=== PATIENT | male | born 1975 | race Caucasian/White ===

== ENCOUNTER 2018-05-22 03:01 | Emergency (ER) | payer OTHER ==
[~2018-05-22] VITALS: Ht 172.7 cm; Wt 79.0 kg
[2018-05-22 03:06] VITALS: BP 154/97
[2018-05-22 03:52] LABS: URINE AMPHETAMINE SCREEN POSITIVE (Neg); URINE BARBITUATE SCREEN NEGATIVE (Neg); URINE BENZODIAZEPINES SCREEN POSITIVE (Neg); URINE CANNABINOID SCREEN POSITIVE (Neg); URINE COCAINE SCREEN NEGATIVE (Neg); URINE METHADONE SCREEN NEGATIVE (Neg); URINE OPIATE SCREEN POSITIVE (Neg); URINE PHENCYCLIDINE SCREEN NEGATIVE (Neg)
[2018-05-22] MEDS ORDERED: chlordiazePOXIDE 25mg capsule PO ONE (04:20)
== END 2018-05-22 04:31 | disposition home or self-care (01) ==
LOC: ER 03:02
DX: F19.10 Other psychoactive substance abuse, uncomplicated (principal); R00.0 Tachycardia, unspecified; F12.90 Cannabis use, unspecified, uncomplicated; F15.90 Other stimulant use, unspecified, uncomplicated; Z88.6 Allergy status to analgesic agent
CPT/HCPCS: 80305; 99283

== ENCOUNTER 2019-02-11 00:39 | Inpatient (IN) | payer MEDICAID, OTHER ==
[~2019-02-11] VITALS: Ht 172.7 cm; Wt 79.6 kg
[2019-02-11 02:00] LABS: CLARITY,URINE CLEAR (Clear); COLOR,URINE YELLOW (Yellow); GLUCOSE, URINE NEGATIVE (Neg); KETONES,URINE NEGATIVE (Neg); LEUKOCYTE ESTERASE ,URINE NEGATIVE (Neg); NITRITES, URINE NEGATIVE (Neg); OCCULT BLOOD,URINE TRACE-LYSED (Neg); PROTEIN,URINE NEGATIVE (Neg); UA COLLECTION TYPE CLN CATCH MIDSTREAM; UROBILINOGEN,URINE 0.2 E.U/dL (0.2-1.0)
[2019-02-11 02:22] LABS: BACTERIA,URINE NONE SEEN /HPF (Neg); MUCUS STRANDS NONE SEEN /LPF (Neg); RBC,URINE 0-2 /HPF (0-2); SQUAMOUS EPITHELIAL CELL,UR NONE SEEN /LPF (FEW); WBC,URINE 0-4 /HPF (0-4)
[2019-02-11 02:36] LABS: PARTIAL THROMBOPLASTIN TIME 29 SECONDS (22-32)
[2019-02-11 02:41] LABS: ALANINE AMINOTRANSFERASE 18 U/L (12-78); ALBUMIN 4.1 G/DL (3.4-5.0); ALBUMIN/GLOBULIN RATIO 0.9 (1.1-1.5); ALKALINE PHOSPHATASE 114 IU/L (46-116); ANION GAP 6 (8-16); ASPARTATE AMINO TRANSFERASE 18 U/L (10-37); BILIRUBIN,TOTAL 0.3 MG/DL (0.1-1.0); BLOOD UREA NITROGEN 17 MG/DL (7-18); BUN/CREATININE RATIO 15.3 (5.4-32.0); C-REACTIVE PROTEIN 1.41 MG/DL (0.0-0.5); CHLORIDE 99 MMOL/L (99-107); CREATININE 1.11 MG/DL (0.60-1.10); GLUCOSE 100 MG/DL (70-104); POTASSIUM 3.9 MMOL/L (3.5-5.1); SODIUM 135 MMOL/L (135-145); TOTAL CARBON DIOXIDE 29.6 MMOL/L (24-32); TOTAL PROTEIN 8.5 G/DL (6.4-8.2); eGFR 73 ML/MIN
[2019-02-11 02:43] LABS: BASOPHILS # (AUTO) 0.1 X10'3 (0-0.2); BASOPHILS % (AUTO) 0.7 % (0-1); EOSINOPHILS # (AUTO) 0.3 X10'3 (0-0.9); EOSINOPHILS % (AUTO) 3.2 % (0-6); HEMATOCRIT 43.8 % (42.0-52.0); HEMOGLOBIN 15.2 g/dl (14.0-17.9); LYMPHOCYTES # (AUTO) 2.4 X10'3 (1.1-4.8); LYMPHOCYTES % (AUTO) 26.3 % (21-51); MEAN CORPUSCULAR HEMOGLOBIN 31.3 PG (27.0-31.0); MEAN CORPUSCULAR HGB CONC 34.7 g/dL (33.0-36.5); MEAN CORPUSCULAR VOLUME 90.3 FL (78-98); MEAN PLATELET VOLUME 7.6 FL (7.4-10.4); MONOCYTES # (AUTO) 0.5 X10'3 (0-0.9); MONOCYTES % (AUTO) 5.9 % (2-12); NEUTROPHILS # (AUTO) 5.8 X10'3 (1.8-7.7); NEUTROPHILS % (AUTO) 63.9 % (42-75); PLATELET COUNT 293 X10'3 (140-440); RED BLOOD COUNT 4.85 X10'6 (4.70-6.10)
[2019-02-11] MEDS ORDERED: vancomycin/NS 1 GM ADD-VANTAGE 250 ML IV ONE (02:55)
[2019-02-11] MEDS ORDERED: piperacillin/tazo 3.375gm/50ml 50 ML IV ONE (02:55)
[2019-02-11] MEDS ORDERED: NO HOME MEDS (03:05)
[2019-02-11 03:19] LABS: URINE AMPHETAMINE SCREEN POSITIVE (Neg); URINE BARBITUATE SCREEN NEGATIVE (Neg); URINE BENZODIAZEPINES SCREEN NEGATIVE (Neg); URINE CANNABINOID SCREEN POSITIVE (Neg); URINE COCAINE SCREEN NEGATIVE (Neg); URINE METHADONE SCREEN NEGATIVE (Neg); URINE OPIATE SCREEN NEGATIVE (Neg); URINE PHENCYCLIDINE SCREEN NEGATIVE (Neg)
[2019-02-11] MEDS ORDERED: magnesium hydroxide 30ml (MOM) UD suspension PO PRN (04:15)
[2019-02-11] MEDS ORDERED: acetaminophen 325mg tablet PO PRN (04:15)
[2019-02-11] MEDS ORDERED: ondansetron/PF 4mg/2ml inj IV PRN (04:15)
[2019-02-11] MEDS ORDERED: HYDROcodone/acetaminophen 5mg/325mg tablet PO PRN (04:15)
[2019-02-11] MEDS ORDERED: mag hydrox/Alum hydrox/simeth 30ml oral suspension PO PRN (04:15)
[2019-02-11] MEDS ORDERED: morphine 2 MG/ML inj. syringe IV PRN (04:15)
[2019-02-11 05:05] VITALS: BP 120/99
--- NOTE | 2019-02-11 07:03 | NUR ---
Patient in room [facility]TH[facility] 4014. I have received report from Nellie KHAN and had the opportunity to ask questions and assume patient care.
[2019-02-11] MEDS: normal saline 1000ml 1,000 ML IV SCH ×3 (07:05→19:57)
[2019-02-11] MEDS: lactobacillus rhamnosus 10,000 MMU CELLS/CAPSULE PO SCH ×2 (09:21→19:48)
[2019-02-11] MEDS: heparin, porcine 5000 units/ml vial SQ SCH ×2 (09:22→20:00)
[2019-02-11] MEDS: piperacillin/tazo 3.375gm/50ml 50 ML IV SCH ×2 (10:52→19:49)
[2019-02-11] MEDS: vancomycin/NS 1 GM ADD-VANTAGE 250 ML IV SCH (15:32)
[2019-02-11 18:00] VITALS: BP 122/78
--- NOTE | 2019-02-11 18:25 | NUR ---
Problems reprioritized. Patient report given, questions answered & plan of care reviewed with Leidy KHAN.
[2019-02-11 22:00] VITALS: BP 115/71
[2019-02-12] MEDS: vancomycin/NS 1 GM ADD-VANTAGE 250 ML IV SCH ×2 (02:39→15:00)
[2019-02-12] MEDS: piperacillin/tazo 3.375gm/50ml 50 ML IV SCH ×2 (03:50→10:49)
[2019-02-12 06:00] VITALS: BP 107/66
--- NOTE | 2019-02-12 06:20 | NUR ---
Patient in room [facility]TH[facility] 4014. I have received report from ERIN Forbes and had the opportunity to ask questions and assume patient care.
[2019-02-12] MEDS: heparin, porcine 5000 units/ml vial SQ SCH (08:00)
[2019-02-12] MEDS: lactobacillus rhamnosus 10,000 MMU CELLS/CAPSULE PO SCH (08:16)
[2019-02-12 08:55] LABS: BASOPHILS # (AUTO) 0.1 X10'3 (0-0.2); BASOPHILS % (AUTO) 0.8 % (0-1); EOSINOPHILS # (AUTO) 0.4 X10'3 (0-0.9); EOSINOPHILS % (AUTO) 4.6 % (0-6); HEMATOCRIT 43.4 % (42.0-52.0); HEMOGLOBIN 14.9 g/dl (14.0-17.9); LYMPHOCYTES # (AUTO) 1.8 X10'3 (1.1-4.8); LYMPHOCYTES % (AUTO) 21.1 % (21-51); MEAN CORPUSCULAR HEMOGLOBIN 30.7 PG (27.0-31.0); MEAN CORPUSCULAR HGB CONC 34.4 g/dL (33.0-36.5); MEAN CORPUSCULAR VOLUME 89.2 FL (78-98); MEAN PLATELET VOLUME 7.3 FL (7.4-10.4); MONOCYTES # (AUTO) 0.5 X10'3 (0-0.9); MONOCYTES % (AUTO) 5.4 % (2-12); NEUTROPHILS # (AUTO) 5.7 X10'3 (1.8-7.7); NEUTROPHILS % (AUTO) 68.1 % (42-75); PLATELET COUNT 302 X10'3 (140-440); RED BLOOD COUNT 4.86 X10'6 (4.70-6.10); WHITE BLOOD COUNT 8.4 X10'3 (4.5-11.0)
[2019-02-12 09:14] LABS: ALBUMIN 3.3 G/DL (3.4-5.0); ANION GAP 7 (8-16); BLOOD UREA NITROGEN 12 MG/DL (7-18); BUN/CREATININE RATIO 10.4 (5.4-32.0); CALCIUM 8.4 MG/DL (8.5-10.1); CHLORIDE 103 MMOL/L (99-107); CREATININE 1.15 MG/DL (0.60-1.10); GLUCOSE 106 MG/DL (70-104); POTASSIUM 4.3 MMOL/L (3.5-5.1); SODIUM 137 MMOL/L (135-145); TOTAL CARBON DIOXIDE 27.1 MMOL/L (24-32); eGFR 70 ML/MIN
[2019-02-12 10:00] VITALS: BP 104/53
[2019-02-12] MEDS ORDERED: pneumococcal 23-VAL P-sac vacc 25 mcg/0.5ml vial IMVAC ONE (10:00)
[2019-02-12] MEDS ORDERED: FLU VACC QS 2019-20 (6 MOS UP) 60 MCG/0.5 ML VIAL IMVAC ONE (10:00)
[2019-02-12] MEDS: normal saline 1000ml 1,000 ML IV SCH (10:12)
[2019-02-12] MEDS ORDERED: VANCOMYCIN LEVEL IV ONE (14:30)
--- NOTE | 2019-02-12 14:30 | NUR ---
PAGER ID: [phone] MESSAGE: Dr. Mcrae, Pt in [id number] [facility] is wanting to know what the plan for his care is. He is under the impression that he is to be d/c today. Please advise. [id number]
[2019-02-12] MEDS ORDERED: AMOX-422 PO (14:48)
--- NOTE | 2019-02-12 16:00 | NUR ---
Patient discharged, all instructions given to patient and gone over all questions answered. New prescriptions called into patient pharmacy. All patient belongings gathered and taken with him. PIV discontinued and was intact. Patient ambulated down to the lobby where he will await his ride. Patient alert and oriented and in stable condition.
== END 2019-02-12 16:15 | disposition home or self-care (01) | DRG 603 ==
LOC: ER 00:40 → ED HOLD 04:32 → ORTHO 4S 05:10
PROVIDERS: ADMIT Family Medicine; ATTEND Family Medicine
DX: L03.011 Cellulitis of right finger (principal); F12.90 Cannabis use, unspecified, uncomplicated; F15.10 Other stimulant abuse, uncomplicated; F17.210 Nicotine dependence, cigarettes, uncomplicated; N18.9 Chronic kidney disease, unspecified; Z28.21 Immunization not carried out because of patient refusal; Z88.5 Allergy status to narcotic agent; Z71.51 Drug abuse counseling and surveillance of drug abuser
CPT/HCPCS: 36415; 71045; 73130; 80048; 80053; 80305; 81001; 83605; 84145; 85025; 85610; 85651; 85730; 86140; 87040; 87081; 96365; 99285; G0378; J1644; J2543; J3370; J7030

== ENCOUNTER 2019-12-11 17:13 | Emergency (ER) | payer MEDICAID ==
[~2019-12-11] VITALS: Ht 172.7 cm; Wt 81.8 kg
[2019-12-11 17:42] VITALS: BP 107/83
[2019-12-11] MEDS ORDERED: PENI500T2 PO (19:07)
== END 2019-12-11 19:25 | disposition home or self-care (01) ==
LOC: ER 17:13
DX: K04.7 Periapical abscess without sinus (principal); K02.9 Dental caries, unspecified; F12.90 Cannabis use, unspecified, uncomplicated; F15.90 Other stimulant use, unspecified, uncomplicated; Z88.5 Allergy status to narcotic agent; Z79.2 Long term (current) use of antibiotics
CPT/HCPCS: 99283

== ENCOUNTER 2021-02-10 12:12 | Emergency (ER) | payer MEDICAID ==
[~2021-02-10] VITALS: Ht 172.7 cm; Wt 84.1 kg
[2021-02-10 13:22] VITALS: BP 125/79
== END 2021-02-10 20:07 | disposition left against medical advice (07) ==
LOC: ER 12:12
DX: Z53.21 Procedure and treatment not carried out due to patient leaving prior to being seen by health care provider (principal)

== ENCOUNTER 2021-07-09 10:51 | Emergency (ER) | payer MEDICAID ==
[~2021-07-09] VITALS: Ht 172.7 cm; Wt 81.0 kg
[2021-07-09 10:58] VITALS: BP 119/74
[2021-07-09] MEDS ORDERED: acetaminophen 325mg tablet PO ONE (13:15)
[2021-07-09] MEDS ORDERED: cephalexin 500mg capsule PO ONE (13:30)
[2021-07-09 13:40] LABS: BASOPHILS % (AUTO) 0.8 % (0-1); EOSINOPHILS # (AUTO) 0.2 X10'3 (0-0.9); EOSINOPHILS % (AUTO) 4.4 % (0-6); HEMATOCRIT 41.9 % (42.0-52.0); HEMOGLOBIN 13.9 g/dl (14.0-17.9); LYMPHOCYTES # (AUTO) 1.1 X10'3 (1.1-4.8); LYMPHOCYTES % (AUTO) 23.2 % (21-51); MEAN CORPUSCULAR HGB CONC 33.3 g/dL (33.0-36.5); MEAN CORPUSCULAR VOLUME 87.1 FL (78-98); MEAN PLATELET VOLUME 8.1 FL (7.4-10.4); MONOCYTES # (AUTO) 0.3 X10'3 (0-0.9); MONOCYTES % (AUTO) 5.9 % (2-12); NEUTROPHILS # (AUTO) 3.2 X10'3 (1.8-7.7); NEUTROPHILS % (AUTO) 65.7 % (42-75); PLATELET COUNT 321 X10'3 (140-440); RED BLOOD COUNT 4.81 X10'6 (4.70-6.10); RED CELL DISTRIBUTION WIDTH 14.3 % (11.5-14.5); WHITE BLOOD COUNT 4.9 X10'3 (4.5-11.0)
[2021-07-09 13:55] LABS: ALANINE AMINOTRANSFERASE 38 U/L (12-78); ALBUMIN 3.9 G/DL (3.4-5.0); ALKALINE PHOSPHATASE 91 IU/L (46-116); ANION GAP 12 (8-16); ASPARTATE AMINO TRANSFERASE 29 U/L (10-37); BLOOD UREA NITROGEN 17 MG/DL (7-18); BUN/CREATININE RATIO 17.5 (5.4-32.0); CALCIUM 8.5 MG/DL (8.5-10.1); CHLORIDE 104 MMOL/L (99-107); CREATININE 0.97 MG/DL (0.60-1.10); GLUCOSE 99 MG/DL (70-104); POTASSIUM 3.2 MMOL/L (3.5-5.1); SODIUM 141 MMOL/L (135-145); TOTAL CARBON DIOXIDE 25.2 MMOL/L (24-32); TOTAL PROTEIN 7.9 G/DL (6.4-8.2); eGFR 84 ML/MIN
[2021-07-09] MEDS ORDERED: SULF1TAB49 PO (14:19)
[2021-07-09] MEDS ORDERED: RIFA300C9 PO (14:19)
== END 2021-07-09 14:36 | disposition home or self-care (01) ==
LOC: ER 10:51
DX: L02.512 Cutaneous abscess of left hand (principal); F12.90 Cannabis use, unspecified, uncomplicated; F15.90 Other stimulant use, unspecified, uncomplicated; Z88.8 Allergy status to other drugs, medicaments and biological substances; Z79.899 Other long term (current) drug therapy
CPT/HCPCS: 10060; 36415; 80053; 85025; 99283

== ENCOUNTER 2024-08-05 09:42 | Emergency (ER) | payer MEDICAID ==
[~2024-08-05] VITALS: Ht 170.2 cm; Wt 81.3 kg
[2024-08-05] MEDS: triamcinolone acetonide 40mg/ml inj IM ONE (12:30)
[2024-08-05] MEDS: hydrOXYzine 25 MG tablet PO ONE (12:30)
[2024-08-05] MEDS ORDERED: HYDR-3686 PO (12:36)
--- NOTE | 2024-08-05 12:39 | Physician Documentation ---
History of Present Illness General Chief Complaint: Rash Stated Complaint: POISON OAK Time Seen by MD: 11:23 Primary Medical Doctor: NONE History of Present Illness Initial Comments 48 mL presents to the emergency department with facial swelling and rash. 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 He has no prior history of same. No seasonal allergies reported. No shortness a breath for past medical history of reactive airway disease. Medication Reconciliation Allergies: Coded Allergies: tramadol (Verified Allergy, Intermediate, SEIZURE, 08/05/24) Past Medical History Past Medical History: *GI/HEPATOBILIARY* Past Surgical History: noncontributory Alcohol Use: None Drug Use: marijuana, methamphetamine Lives In: Home Review of Systems All Other Systems at this time: Reviewed and Negative Constitutional: Denies: fever, chills RESP: Denies: short of breath, cough CV: Denies: chest pain Physical Exam Physical Exam Vital Signs: RN Vital Signs have been reviewed: Yes, Temperature: 98.1, Source: Temporal, Heart Rate: 51, Respiratory Rate: 18, BP: 107/70, Pulse Oximetry: 96, Weight: 81.300 Oxygen Flow Rate: 0 General Appearance: alert, WD/WN, mild distress Head: normal inspection Face: other (. We will swelling and flushing in his) Pupils/EOM/Fundus: PERRLA Oropharynx: normal inspection Respiratory: lungs clear Chest: no accessory muscle use Cardiovascular: normal peripheral pulses Gastrointestinal: normal palpation Back: normal inspection Neurologic: oriented x4 Motor / Sensory: no motor deficit, no sensory deficit Psychiatric: normal mood/affect Skin: other (Scattered due to [place]) Progress Results/Orders Results/Orders Completed Orders - MARLON PRESTON Triamcinolone Acet 40mg/Ml Inj (Kenalog- (08/05/24 12:20) Hydroxyzine Tablet (Atarax Tablet) (08/05/24 12:25) Medications Received in ER Medications (Trade) Dose Ordered Sig/Pooja Route PRN Reason Start Time Stop Time Status Last Admin Dose Admin (Kenalog-40 inj) 60 mg ONCE ONCE IM 08/05/24 12:20 08/05/24 12:22 DC 08/05/24 12:30 60 MG (Atarax tablet) 25 mg ONCE ONCE PO 08/05/24 12:25 08/05/24 12:26 DC 08/05/24 12:30 25 MG Vital Signs 08/05/24 08/05/24 09:55 12:14 Temp 98.1 98.1 Pulse 57 51 Resp 16 18 B/P (MAP) 119/58 107/70 (82) Pulse Ox 100 96 O2 Flow Rate 0 Medical Decision Making Differential Diagnosis Examination history consistent with the acute hypersensitivity one type reaction requiring Kenalog injection and hydroxyzine. Patient be discharged with H1 and H2 blockers. Recommendations are to continue with the nonsedating antihistamine after acute flare has resolved. Patient is safely discharged to the emergency department with a suspicion for angioedema and anaphylaxis. Departure Disposition: HOME / SELF CARE / HOMELESS Impression: Primary Impression: Hypersensitivity reaction Qualified Codes: T78.40XA - Allergy, unspecified, initial encounter Condition: Improved Discharge Instructions: Allergies, Adult, [id number] Additional Instructions: Your examination & history consistent with a type 1 hypersensitivity reaction requiring Kenalog and hydroxyzine. Patient tolerated injection and medication while in the emergency department will be discharged accordingly with prescription hand. They believe he is in the emergency department [facility] and return if symptoms worsen. Referrals: NO PRIMARY CARE PROVIDER (PCP) Prescriptions Hydroxyzine Hcl* (Atarax*) 25 Mg Tablet 1 TAB PO Q8H PRN for ITCHING for 10 Days, #30 TAB Prov: MARLON PRESTON 08/05/24 Education Educated: Patient Educated regarding: diagnosis, treatment Signature Scribe Signature: . Attestation: . MARLON PRESTON Aug 05, 2024 12:39
[2024-08-05 12:51] VITALS: BP 107/70; PULSE 60; RESP 18; TEMP 98.1; O2SAT 99
== END 2024-08-05 13:01 | disposition home or self-care (01) ==
LOC: ER 09:42
DX: T78.40XA Allergy, unspecified, initial encounter (principal); Z88.5 Allergy status to narcotic agent; Y92.89 Other specified places as the place of occurrence of the external cause
CPT/HCPCS: 96372; 99283; J3301; Q0177

== ENCOUNTER 2024-10-31 14:55 | Emergency (ER) | payer MEDICAID ==
[~2024-10-31] VITALS: Ht 172.7 cm; Wt 80.3 kg
[2024-10-31 14:58] VITALS: BP 145/93; PULSE 77; RESP 14; TEMP 97.7; O2SAT 99
--- NOTE | 2024-10-31 15:43 | Physician Documentation ---
History of Present Illness ~ Chief Complaint: Jaw Pain Stated Complaint: JAW PAIN Time Seen by MD: 15:29 Primary Medical Doctor: NONE HPI Patient is a 48-year-old male that presents to the emergency department for evaluation of left-sided jaw pain times multiple weeks. Patient reports that he had all of his teeth extracted approximately 10 weeks ago in preparation for dentures. Reports that he feels that piece of bone sticking out from the gumline and is concerned that it is a piece of his jaw. Patient denies inability to open his mouth close his mouth does not have any significant pain only feels piece of bone protruding from the gumline. No other complaints reported today. Tetanus Within 5 Years: No (unknown) Medication Reconciliation Allergies: Coded Allergies: tramadol (Verified Allergy, Intermediate, SEIZURE, 08/05/24) Past Medical History Past Medical History: *GI/HEPATOBILIARY* Past Surgical History: noncontributory Alcohol Use: None Drug Use: marijuana, methamphetamine Lives In: Home Review of Systems ROS As stated above in the HPI, otherwise all systems are reviewed and negative. Physical Exam Vital Signs: Temperature: 97.7, Source: Temporal, Heart Rate: 77, Respiratory Rate: 14, BP: 145/93, Pulse Oximetry: 99, Weight: 80.300 Oxygen Flow Rate: 0 Physical Exam VITALS: Reviewed and as above. GENERAL: Alert, no apparent distress. HEENT: Normocephalic, atraumatic, PERRL, EOMI, dry mucosa, no erythema RESPIRATORY: Lungs clear, normal breath sounds, no respiratory distress. CHEST: No accessory muscle use, no retractions CV: Regular rate, rhythm, no edema, no murmur, No: JVD GI: Soft, non-tender, bowels sounds present, no rebound, guarding, or rigidity BACK: No CVA tenderness, or swelling MUSCULOSKELETAL No deformities, no edema, no pain with examination of jaw including biting down onto a tongue depressor and twisting. SKIN: Warm and dry, no rash NEURO: Oriented x4, No motor or sensory deficit PSYCH: Normal mood and affect, no agitation Progress Results/Orders Results/Orders Vital Signs 10/31/24 14:58 Temp 97.7 Pulse 77 Resp 14 B/P (MAP) 145/93 Pulse Ox 99 O2 Flow Rate 0 Medical Decision Making Findings Patient presents for dental pain due to suspected retained piece of tooth from extraction 10 weeks ago. Patient not immunosuppressed, afebrile and well appearing with patent airway, have low suspicfion for deep space infection or any concern for airway compromise. Based on history, physical, and work up. No evidence of tooth fracture, avulsion, or bleeding socket. Instructed patient to continue to treat pain with ibuprofen/acetaminophen until they see a dentist. Defer ABX for dental pain alone with no overt evidence of infection. Patient discharged home and will follow up with dentist November 12 per patient. Discussed return precautions for odontogenic infections and other dental pain emergencies. Patient will return to the emergency department with any worsening of his current symptoms or any additional concerning symptoms that we discussed here today i.e. fever chills nausea vomiting increased pain swelling of his neck difficulty swallowing difficulty breathing or any other concerning symptoms. Differential Dx:Considerations: Include: Abrasion, Contusion, Cerebral contusion, Cervical spine injury, Closed head injury, Encephalopathy, Foreign body, Fracture, facial, Intoxication-alcohol, Intoxication-other drug, Laceration, Other Departure Disposition: HOME / SELF CARE / HOMELESS Impression: Primary Impression: Jaw pain Additional Impression: Retained root of tooth after tooth extraction Discharge Instructions: Dental Pain, [id number] Additional Instructions: Patient presents for dental pain due to suspected retained piece of tooth from extraction 10 weeks ago. Patient not immunosuppressed, afebrile and well appearing with patent airway, have low suspicfion for deep space infection or any concern for airway compromise. Based on history, physical, and work up. No evidence of tooth fracture, avulsion, or bleeding socket. Instructed patient to continue to treat pain with ibuprofen/acetaminophen until they see a dentist. Defer ABX for dental pain alone with no overt evidence of infection. Patient discharged home and will follow up with dentist November 12 per patient. Discussed return precautions for odontogenic infections and other dental pain emergencies. Patient will return to the emergency department with any worsening of his current symptoms or any additional concerning symptoms that we discussed here today i.e. fever chills nausea vomiting increased pain swelling of his neck difficulty swallowing difficulty breathing or any other concerning symptoms. Referrals: NO PRIMARY CARE PROVIDER (PCP) Education Educated: Patient Educated regarding: diagnosis, treatment, need for follow up Signature Scribe Signature: A Attestation: Scribed for Sergio Saini by YOBANY Barillas . 10/31/24 15:44 SERGIO SAINI Oct 31, 2024 15:42
== END 2024-10-31 15:58 | disposition home or self-care (01) ==
LOC: ER 14:56
DX: K08.3 Retained dental root (principal); R68.84 Jaw pain; F12.90 Cannabis use, unspecified, uncomplicated; F15.90 Other stimulant use, unspecified, uncomplicated; Z88.5 Allergy status to narcotic agent
CPT/HCPCS: 99282